=== PATIENT | male | born 1995 | race Caucasian/White ===

== ENCOUNTER 2018-11-21 17:19 | Emergency (ER) | payer BC, OTHER ==
[~2018-11-21] VITALS: Ht 175.3 cm; Wt 89.4 kg
[~2018-11-21 17:19] MED LIST: VITAMINS
[2018-11-21 17:39] VITALS: BP 142/68
--- NOTE | 2018-11-21 17:46 | NUR ---
Patient ambulated to bed 1. RN evaluating patient at bedside.
--- NOTE | 2018-11-21 17:46 | NUR ---
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 AAO X4 C/O SNAKE BITE TO R HAND IN BETWEEN THUMB & 2ND DIGIT FROM PET "RED TAIL BOA" TODAY APPROX. 1 HOUR AGO. PT STATES THERE ARE TEETH LEFT IN THE BITE. DATE OF LAST TDAP UNKNOWN, PT WOULD LIKE TO RECEIVE ONE TODAY. PT ALSO HAS A LACERATION TO 2ND DIGIT ON R HAND FROM A BROKEN PIECE OF GLASS 2 WEEKS AGO HE WOULD LIKE LOOKED AT. PT DENIES FEVER, N/V, SOB. ER TO EVALUATE PT.
--- NOTE | 2018-11-21 18:05 | NUR ---
CALLED [facility] AT [phone] AND REPORTED SNAKE BITE INCIDENT TO
--- NOTE | 2018-11-21 19:10 | NUR ---
Pt report given to MICHEAL LEONG. Transfer of care at this time.
--- NOTE | 2018-11-21 19:11 | NUR ---
RECEIVED REPORT FROM MICHEAL ARRIETA. TRANSFER OF CARE AT THIS TIME.
--- NOTE | 2018-11-21 19:12 | NUR ---
PT AWAKE, ALERT, CALM, COOPERATIVE. 2 SMALL PUNCTURE WOUNDS NOTED TO RIGHT HAND. BLEEDING CONTROLLED. MINOR SWELLING, REDNESS NOTED. PT REQUESTING CRACKERS.
--- NOTE | 2018-11-21 19:43 | NUR ---
XRAY AT BEDSIDE.
--- NOTE | 2018-11-21 20:20 | NUR ---
PT RECEIVED TDAP CONSENT FORM. EDUCATED ON RISKS/BENEFITS. MEDICATION ADMINISTERED. WILL CONTINUE TO MONITOR FOR ASE.
[2018-11-21 20:42] VITALS: BP 129/75
--- NOTE | 2018-11-21 20:44 | NUR ---
PT WOUND IRRIGATED WITH STERILE WATER
== END 2018-11-21 20:42 | disposition home or self-care (01) ==
LOC: MED 17:19
DX: S60.551A Superficial foreign body of right hand, initial encounter (principal); W59.11XA Bitten by nonvenomous snake, initial encounter; Y93.89 Activity, other specified; Y92.89 Other specified places as the place of occurrence of the external cause; Y99.8 Other external cause status
CPT/HCPCS: 73130; 90471; 90715; 99283; Q0092

== ENCOUNTER 2018-12-17 07:15 | Emergency (ER) | payer OTHER ==
[~2018-12-17] VITALS: Ht 175.3 cm; Wt 86.2 kg
[2018-12-17 07:25] VITALS: BP 129/78
--- NOTE | 2018-12-17 07:31 | NUR ---
DR LOZOYA AT BEDSIDE
--- NOTE | 2018-12-17 07:32 | NUR ---
C/O ANTERIOR CHEST WALL PAIN AND ABDOMEN SORENESS/ACHE S/P WORKING OUT YESTERDAY. NONRADIATING-PAIN 08/27. PT NON-DIAPHORETIC, DENIES SOB, NUMBNESS, TINGLING, OR DIZZINESS. AA0X4. VSS AT THIS TIME. BED IS DOWN, LOCKED, BED RAIL X 1, ERMD TO SEE PT. RECENT DX FATTY LIVER; WAS TOLD TO EXCERCISE DENIES SOB, NO PEDAL EDEMA--SKIN PINK WARM AND DRY HX--FATTY LIVER RX--[id number]
[2018-12-17] MEDS ORDERED: KETOROLAC 30 MG/ML VIAL IM ONE (07:40)
--- NOTE | 2018-12-17 07:51 | NUR ---
PT TAKEN TO XRAY VIA WHEELCHAIR
--- NOTE | 2018-12-17 07:56 | NUR ---
PT RETURNED FROM XRAY
--- NOTE | 2018-12-17 08:02 | NUR ---
[facility] EMT AT BEDSIDE FOR EKG
[2018-12-17 08:49] VITALS: BP 121/84
--- NOTE | 2018-12-17 08:51 | NUR ---
Patient discharged with v/s stable. Written and verbal after care instructions given and explained. Patient verbalized understanding. Ambulatory with steady gait. All questions addressed prior to discharge. Advised to follow up with PMD.
== END 2018-12-17 08:30 | disposition home or self-care (01) ==
LOC: MED 07:15
DX: R07.89 Other chest pain (principal); R05 Cough; R10.13 Epigastric pain; K76.0 Fatty (change of) liver, not elsewhere classified; F12.10 Cannabis abuse, uncomplicated; Z79.899 Other long term (current) drug therapy
CPT/HCPCS: 71046; 93005; 96372; 99283; J1885